=== PATIENT | male | born 1965 ===

== ENCOUNTER 2022-11-15 12:07 | Emergency (ER) | payer MEDICARE, MEDICAID, SELFPAY ==
--- NOTE | ~2022-11-15 | CT_ITS ---
EXAMINATION: CT FACIAL BONES WITH CONTRAST CLINICAL INFORMATION: Left facial swelling. Abscess. COMPARISON: No relevant prior imaging. TECHNIQUE: Hot Air Furnace Installer Repairer images were obtained. CT imaging of the face was performed after the intravenous administration of 85 mL Omnipaque 350. Data was reformatted into multiplanar images at the acquisition workstation. This CT examination was performed using dose optimization techniques as appropriate, variously including the following: *Automated exposure control *Adjustment of mA and/or kV according to patient size (this includes techniques or standardized protocols for targeted exams where dose is matched to indication/reason for exam; i.e. extremities or head) *Use of iterative reconstruction technique DLP: 288 mGy-cm FINDINGS: There is a large peripherally enhancing multiloculated fluid collection surrounding the left mandibular ramus and mandibular body with involvement of the left submandibular and sublingual spaces measuring approximately 6.6 x 5.3 x 5.9 cm (AP x TV x SI). This finding represents an odontogenic abscess given the presence of multiple carious mandibular teeth, many of which demonstrate periapical erosions that extends through the lingual cortex of the mandibular alveolar process. Internal jugular veins fill symmetrically and there is no evidence of septic thrombophlebitis. Multiple relatively small likely reactive cervical lymph nodes. Pharyngeal mucosal spaces are symmetric. Parapharyngeal fat is grossly maintained. The right house carpenter helper space is normal. The right parotid and submandibular glands are normal. Epiglottis is normal. Preepiglottic fat is preserved. Visualized thyroid tissue is unremarkable. There is normal spinal alignment. 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 Grossly no spinal canal compromise. Advanced multilevel degenerative spondylosis of the cervical spine. Limited visualization of intracranial anatomy reveals no abnormal finding. CT/CT facial bones w IV con IMPRESSION: There is a large odontogenic abscess surrounding the left mandibular ramus and mandibular body with involvement of the left submandibular and sublingual spaces. No evidence of septic thrombophlebitis.
--- NOTE | 2022-11-15 12:41 | ED.GENADULT ---
HPI - General Adult General Chief complaint: Skin/Abscess/Foreign Body Stated complaint: Abnormal labs sent by PCP Time Seen by Provider: 11/15/22 13:54 Source: patient Limitations: no limitations History of Present Illness HPI narrative: 56-year-old male with history of rheumatoid arthritis on methotrexate presents with swelling to the left side of his face. Symptoms started approximately 1 week ago. Swelling has gotten progressively worse. He has had no fevers or chills. Denies any difficulty swallowing or breathing. He does describe moderate amount of pain. There is no clear relieving or exacerbating features. Patient was seen by his primary care provider and started on oral antibiotics without relief. He comes today for re-evaluation. Patient denies any dental pain. Denies any dentition related issues. Patient describes symptoms as moderate to severe. Related Data Allergies Allergy/AdvReac Type Severity Reaction Status Date / Time No Known Allergies Allergy Verified 11/15/22 12:47 Review of Systems Review of Systems: CONSTITUTIONAL: Denies weight loss, fever and chills. HEENT: Denies changes in vision and hearing. RESPIRATORY: Denies SOB and cough. CV: Denies palpitations no CP. GI: Denies abdominal pain, nausea, vomiting and diarrhea. : Denies dysuria and urinary frequency. MSK: Denies myalgia and joint pain. SKIN: Denies rash and pruritus. NEUROLOGICAL: Denies headache and syncope. PSYCHIATRIC: Denies recent changes in mood. Denies anxiety and depression. All other ROS are negative unless in HPI PMFSH Past Medical History Medical History Abscess of lung Acute sialoadenitis Allergic rhinitis Mild persistent asthma Pulmonary actinomycosis Rheumatoid arthritis Ulcerative colitis Underweight Social History Social History Alcohol intake: never Smoked in Last 30 Days: No Use of substances other than those prescribed or required for medical reasons: No Advance Directives: No Advance Directives Information Provided: Yes Physical Exam ED Vital Signs: Vital Signs - 24 hr 11/15/22 12:43 11/15/22 13:57 Temperature 98.9 F 98.7 F Pulse Rate 131 H 106 H Respiratory Rate 18 16 Blood Pressure 115/79 136/77 Pulse Oximetry 97 99 Oxygen Delivery Method Room Air Room Air BMI result Body Mass Index 17.0 GEN: Well developed, no acute distress, alert, oriented HEENT: Left-sided mandibular and submandibular swelling, tenderness and erythematous changes Eyes: Normal to appearance Neck: Supple, no lymphadenopathy Respiratory: Talks in complete sentences, no respiratory distress, clear to auscultation bilaterally Cardiovascular: Regular rate and rhythm, no murmurs rubs or gallops Abdomen: Soft, nontender, nondistended, no guarding, no rebound Back: No CVA tenderness Extremities: No clubbing cyanosis or edema Neurologic: No focal neurologic deficits, cranial nerves 2-12 intact, strength is 5/5 bilaterally Skin: No rash Course Course Course Narrative: RME: 56yo M w/PMHx colostomy, RA, lung abscess, c/o left sided facial swelling x6 days, PO intake, and elevated WBC count on outpatient labs. Patient was seen by PCP on 11/12 diagnosed sailolithasis started on Clindamycin without improvement Patient notably tachycardic in the 140s, + left-sided facial swelling with fluctuance appreciated. Patient in wheelchair, appears cachectic, chronically ill Labs, lactic/blood cultures, CT facial ordered Full HPI, ROS and PE to be performed by primary ED provider. Reevaluation(s) Reevaluation #1: Patient has a large abscess to the left mandibular area that appears to be septated with no evidence of airway compromise. She is hemodynamically stable with good oxygen saturation. I contacted [facility] who is not able to accept the patient at this time. I am currently on the phone with [facility] CV can be accepted to their service. Patient has been ordered for Zosyn for antibiotic coverage. He has been made aware that he will need transfer as he is likely need surgical incision and drainage in the OR. Time: 15:38 Reevaluation #2: Patient was accepted to [facility] Emergency Department. Dr. Jasvir Bar. Will arrange transport at this time Time: 15:41 Medications Administered Discontinued Medications Generic Name Dose Route Start Last Admin Trade Name Freq PRN Reason Stop Dose Admin Piperacillin Sod/Tazobactam 50 mls @ 100 mls/hr 11/15/22 14:54 11/15/22 15:18 Sod 3.375 gm/ Sodium Chloride IV 11/15/22 15:23 100 mls/hr ONCE ONE Administration Iohexol 100 ml 11/15/22 15:05 11/15/22 15:06 Iohexol 350 Mg/Ml 100 Ml Infus..Btl IV 11/15/22 15:06 85 ml ONCE ONE Administration Medical Decision Making Medical Decision Making [facility] Narrative: 56-year-old male presents with left-sided jaw swelling. Patient appears to have a large abscess to left face that is involving the submandibular area. There does not appear to be any airway compromise. There is no wheezing or stridor. Is able to swallow without significant difficulty. CT scan of the facial area be ordered to ensure that there is no airway compromise at this time. We discussed the possible need of transfer to a higher level of care given that we have no ENT coverage. Differential Diagnosis Differential Diagnoses: The differential diagnosis associated with the presentation includes (Abscess, parotitis, Godfrey's angina) Admission/Observation Consideration of admission/observation: Escalation of care including admission/observation considered Consult Healthcare Provider Management of the patient was discussed with: Shearer Operator ([facility] transfer line) Lab Data [facility] Lab Attestation statement: I reviewed the patient's lab results. 11/15/22 13:00 11/15/22 13:00 Labs: Lab Results 11/15/22 11/15/22 11/15/22 Range/Units 13:00 13:00 13:00 WBC 20.7 H (4.8-10.8) X10*3/uL RBC 3.99 L (4.60-5.80) X10*6/uL Hgb 11.5 L (14.0-18.0) g/dl Hct 35.8 L (42.0-52.0) % MCV 89.7 (80.0-98.0) fL MCH 28.8 (27.0-33.0) pg MCHC 32.1 (31.0-36.0) g/dl RDW 13.9 (11.0-16.0) % Plt Count 252 (160-400) X10*3/uL MPV 8.6 L (9.4-12.4) fL Immature Gran % (Auto) 0.8 H (0.0-0.4) % Neut % (Auto) 89.4 H (45-73) % Lymph % (Auto) 1.0 L (20-40) % Foster % (Auto) 8.5 (2-11) % Eos % (Auto) 0.1 (0-4) % Baso % (Auto) 0.2 (0-2) % Lymph # (Auto) 0.2 L (1.2-4.9) X10*3/uL Foster # (Auto) 1.8 H (0.1-1.2) X10*3/uL Eos # (Auto) 0.0 (0.0-0.4) X10*3/uL Baso # (Auto) 0.0 (0.0-0.2) X10*3/uL Abs Immat Gran (auto) 0.16 H (0.00-0.03) X10*3/uL Absolute Neuts (auto) 18.5 H (2.0-8.3) x10*3/uL Absolute Nucleated RBC 0.000 (0.0-0.012) X10*3/uL Nucleated RBC % (auto) 0.0 (0.0-0.2) /100WBC Smear Tech's Comments VERIFIED Sodium 142 (135-145) mmol/L Potassium 4.1 (3.3-5.1) mmol/L Chloride 104 (96-108) mmol/L Carbon Dioxide 27 (22-29) mmol/L Anion Gap 15 (12-20) BUN 18 H (9-16) mg/dL Creatinine 0.95 (0.5-1.4) mg/dL Estim Creat Clear Calc 64.0 Estimated GFR > 60 Random Glucose 120 H (60-115) mg/dL Lactic Acid 1.3 (0.5-2.0) mmol/L Calcium 8.9 (8.4-10.2) mg/dL Magnesium 2.0 (1.6-2.6) mg/dL Total Bilirubin 1.0 (0.0-1.0) mg/dL Direct Bilirubin 0.4 (0.0-0.5) mg/dL AST 12 (5-37) U/L ALT 11 (0-40) U/L Alkaline Phosphatase 168 H (39-117) U/L Total Protein 6.7 (6.5-8.0) g/dL Albumin 3.7 (3.5-5.0) g/dL Urine Color Urine Appearance Urine pH (5.0-9.0) Ur Specific Wilson (1.005-1.025) Urine Protein (Neg-Trace) mg/dL Urine Glucose (UA) (Negative) mg/dL Urine Ketones (Negative) mg/dL Urine Blood (Negative) Urine Nitrite (Negative) Ur Leukocyte Esterase (Negative) Urine RBC (0-2) /HPF Urine WBC (0-5) /HPF Ur Squamous Epith Cells (0-2) /HPF Urine Bacteria (None Seen) Hyaline Casts (0-2) /LPF 11/15/22 Range/Units 13:52 WBC (4.8-10.8) X10*3/uL RBC (4.60-5.80) X10*6/uL Hgb (14.0-18.0) g/dl Hct (42.0-52.0) % MCV (80.0-98.0) fL MCH (27.0-33.0) pg MCHC (31.0-36.0) g/dl RDW (11.0-16.0) % Plt Count (160-400) X10*3/uL MPV (9.4-12.4) fL Immature Gran % (Auto) (0.0-0.4) % Neut % (Auto) (45-73) % Lymph % (Auto) (20-40) % Foster % (Auto) (2-11) % Eos % (Auto) (0-4) % Baso % (Auto) (0-2) % Lymph # (Auto) (1.2-4.9) X10*3/uL Foster # (Auto) (0.1-1.2) X10*3/uL Eos # (Auto) (0.0-0.4) X10*3/uL Baso # (Auto) (0.0-0.2) X10*3/uL Abs Immat Gran (auto) (0.00-0.03) X10*3/uL Absolute Neuts (auto) (2.0-8.3) x10*3/uL Absolute Nucleated RBC (0.0-0.012) X10*3/uL Nucleated RBC % (auto) (0.0-0.2) /100WBC Smear Tech's Comments Sodium (135-145) mmol/L Potassium (3.3-5.1) mmol/L Chloride (96-108) mmol/L Carbon Dioxide (22-29) mmol/L Anion Gap (12-20) BUN (9-16) mg/dL Creatinine (0.5-1.4) mg/dL Estim Creat Clear Calc Estimated GFR Random Glucose (60-115) mg/dL Lactic Acid (0.5-2.0) mmol/L Calcium (8.4-10.2) mg/dL Magnesium (1.6-2.6) mg/dL Total Bilirubin (0.0-1.0) mg/dL Direct Bilirubin (0.0-0.5) mg/dL AST (5-37) U/L ALT (0-40) U/L Alkaline Phosphatase (39-117) U/L Total Protein (6.5-8.0) g/dL Albumin (3.5-5.0) g/dL Urine Color Yellow Urine Appearance Cloudy Urine pH 6.0 (5.0-9.0) Ur Specific Wilson 1.020 (1.005-1.025) Urine Protein 100 (2+) H (Neg-Trace) mg/dL Urine Glucose (UA) Negative (Negative) mg/dL Urine Ketones 40 (Negative) mg/dL Urine Blood Large (3+) H (Negative) Urine Nitrite Negative (Negative) Ur Leukocyte Esterase Negative (Negative) Urine RBC >20 H (0-2) /HPF Urine WBC 0-5 (0-5) /HPF Ur Squamous Epith Cells 0-2 (0-2) /HPF Urine Bacteria None Seen (None Seen) Hyaline Casts 3-5 (0-2) /LPF Independent Interpretation I performed an independent interpretation of an: CT Scan (Large septated abscess to left mandibular and submandibular area no evidence of airway compromise) Prescription Management I considered prescription management with: Pain Medication and Antibiotic Chronic Conditions Patient?s care impacted by: Other (Rheumatoid arthritis) Critical Care Time Critical Care Time Critical Care Time: Yes Total Critical Care Time: 40 Attestation: 40 minutes of critical care time was spent with bedside history and physical, reassessment, extensive conversation regarding findings on imaging and laboratory results medical decision making, interpretation of medical data sheet documentation. All of this was performed outside of procedures. Discharge Plan Discharge Clinical Impression: Abscess of skin or subcutaneous tissue Patient Disposition: [facility] Transfer Details: [facility]
[2022-11-15 12:43] VITALS: BP 115/79; PULSE 131; RESP 18; TEMP 37.2; O2SAT 97; BMI 17.0
--- NOTE | 2022-11-15 13:04 | MHC.EDTECH ---
Labs and 1st set of blood cultures drawn and sent to lab
[2022-11-15 13:06] LABS: Basophils Percent Auto 0.2 % (0-2); Eosinophils Percent Auto 0.1 % (0-4); Hematocrit 35.8 % (42.0-52.0); Hemoglobin 11.5 g/dl (14.0-18.0); Imm Gran Abs Auto 0.16 X10*3/uL (0.00-0.03); Imm Gran Pct Auto 0.8 % (0.0-0.4); Lymphocytes Absolute Auto 0.2 X10*3/uL (1.2-4.9); MANUAL DIFF FLAG SCAN; Mean Corpuscular HGB Conc 32.1 g/dl (31.0-36.0); Mean Corpuscular Hemoglobin 28.8 pg (27.0-33.0); Mean Corpuscular Volume 89.7 fL (80.0-98.0); Mean Platelet Volume 8.6 fL (9.4-12.4); Monocytes Absolute Auto 1.8 X10*3/uL (0.1-1.2); Monocytes Percent Auto 8.5 % (2-11); Neutrophils Absolute Auto 18.5 x10*3/uL (2.0-8.3); Neutrophils Percent Auto 89.4 % (45-73); Platelet Count 252 X10*3/uL (160-400); Red Blood Count 3.99 X10*6/uL (4.60-5.80); Red Cell Distribution Width 13.9 % (11.0-16.0); SCAN SMEAR FLAG 1; White Blood Count 20.7 X10*3/uL (4.8-10.8)
[2022-11-15 13:16] LABS: Lactic Acid 1.3 mmol/L (0.5-2.0)
[2022-11-15 13:21] LABS: Alanine Aminotransferase 11 U/L (0-40); Albumin Level 3.7 g/dL (3.5-5.0); Alkaline Phosphatase 168 U/L (39-117); Anion Gap 15 (12-20); Aspartate Amino Transferase 12 U/L (5-37); Bilirubin Direct 0.4 mg/dL (0.0-0.5); Blood Urea Nitrogen 18 mg/dL (9-16); Calcium 8.9 mg/dL (8.4-10.2); Carbon Dioxide 27 mmol/L (22-29); Chloride 104 mmol/L (96-108); Estimated Glomerular Filt Rate > 60; Glucose Random 120 mg/dL (60-115); Potassium 4.1 mmol/L (3.3-5.1); Sodium 142 mmol/L (135-145); Total Protein 6.7 g/dL (6.5-8.0)
[2022-11-15 13:30] LABS: SLIDE REVIEW VERIFIED
[2022-11-15 13:57] VITALS: BP 136/77; PULSE 106; RESP 16; TEMP 37.1; O2SAT 99
[2022-11-15 14:04] LABS: Appearance Urine Cloudy; Color Urine Yellow; Glucose Urine UA Negative (Negative); Leukocyte Esterase Urine Negative (Negative); Nitrite Urine Negative (Negative); UMIC TRIGGER UACC YES; Urine Blood Large (3+) (Negative); Urine Ketones 40 mg/dL (Negative); Urine Protein 100 (2+) mg/dL (Neg-Trace)
[2022-11-15 14:08] LABS: Bacteria Urine None Seen (None Seen); RBC Urine >20 /HPF (0-2); Squamous Epithelial Cell Urine 0-2 /HPF (0-2); WBC Urine 0-5 /HPF (0-5)
--- NOTE | 2022-11-15 14:12 | PC.NURSE ---
pt a&ox4, sinus tach, other vss, pt reporting 5/10 left jaw pain/swelling x 1 week, referred to ED by PCP for elevated WBC and decreased PO intake. 20G IV placed left AC, 2nd set of cultures drawn, urine sample obtained, pt pending CT scan. no new orders at this time.
[2022-11-15] MEDS: iohexoL 350 MG/ML 100 ML INFUS..BTL IV (15:06)
[2022-11-15] MEDS: Piperacillin Sodium/Tazobactam 3.375 GM in 0.9 % Sodium Chloride 50 ML IV (15:18)
--- NOTE | 2022-11-15 15:20 | PC.NURSE ---
pt medicated per AUG. pending CT results.
[2022-11-15 16:00] VITALS: BP 143/87; PULSE 120; TEMP 37.5; O2SAT 97
--- NOTE | 2022-11-15 16:20 | PC.NURSE ---
RN-RN report given to [facility].
[2022-11-15 16:56] LABS: COVID-19 Test Negative (Negative); IDNOW Serial# 08D9AD1C
== END 2022-11-15 17:10 | disposition short-term general hospital (02) ==
PROVIDERS: Physician Assistant; Emergency Provider Emergency Medicine; PCP Internal Medicine
DX: M27.2 Inflammatory conditions of jaws (principal); J45.30 Mild persistent asthma, uncomplicated; M06.9 Rheumatoid arthritis, unspecified; Z79.631 Long term (current) use of antimetabolite agent; Z20.822 Contact with and (suspected) exposure to COVID-19; K11.5 Sialolithiasis
CPT/HCPCS: 36415; 70487; 80048; 80076; 81001; 81003; 83605; 83735; 85025; 87040; 87635; 96365; 99285; J2543; Q9967